=== PATIENT | female | born 1940 | race Native Hawaiian/Other Pacific Islander ===

== ENCOUNTER 2022-11-22 08:43 | Outpatient (CLI) | payer OTHER ==
[~2022-11-22] VITALS: Ht 157.5 cm; Wt 74.8 kg
== END 2022-11-22 19:08 | disposition home or self-care (01) ==
LOC: NM 08:43
PROVIDERS: ATTEND Internal Medicine
DX: R06.02 Shortness of breath (principal); R42 Dizziness and giddiness; Z13.6 Encounter for screening for cardiovascular disorders; I10 Essential (primary) hypertension; E78.49 Other hyperlipidemia; E11.9 Type 2 diabetes mellitus without complications; E03.8 Other specified hypothyroidism; R22.1 Localized swelling, mass and lump, neck; R53.83 Other fatigue
CPT/HCPCS: A9500; J2785